=== PATIENT | female | born 1985 | race Caucasian/White ===

== ENCOUNTER → 2016-06-17 | Outpatient (CLI) | payer OTHER ==
--- NOTE | 2016-06-17 17:21 | DX ---
Bone length study - June 17, 2016 at 1133 hours Clinical indication: Low back pain radiating to the legs. Findings: The joint spaces at the hips, knees and ankles are relatively well maintained. Limb length was measured at 85.3 cm bilaterally measuring from the top of the femoral head, through the tibial s pines to the tibial plafond. On standing, there is very mild genu valgus deformity, which may be posi tional. An IUD is noted in the pelvis. Impression: No significant limb length discrepancy.
== END ==
LOC: FIMAGING 11:36
PROVIDERS: ATTEND Podiatrist Foot & Ankle Surgery
DX: M54.5 Low back pain (principal)

== ENCOUNTER 2018-11-29 18:27 | Emergency (ER) | payer OTHER | END 2018-11-29 19:39 | disposition home or self-care (01) ==